=== PATIENT | male | born 1965 | race Caucasian/White ===

== ENCOUNTER → 2018-08-22 10:39 | Outpatient (CLI) | payer OTHER, SELFPAY ==
[2018-08-22 11:17] LABS: Add Manual Diff / Slide Review NO; Appearance Urine UA CLEAR; Bilirubin Urine UA NEGATIVE (NEGATIVE); Color Urine UA YELLOW; Eosinophils Percent Auto 4.3 % (2-4); Glucose Urine UA NEGATIVE (Normal); Hemoglobin 16.2 g/dL (13.5-17.5); Ketones Urine UA NEGATIVE (NEGATIVE); Leukocyte Esterase Urine UA NEGATIVE (NEGATIVE); Mean Corpuscular HGB Conc 33.1 % (30-36); Mean Corpuscular Hemoglobin 30.2 PG (26-34); Mean Corpuscular Volume 91.1 fL (80-100); Monocytes Percent Auto 10.6 % (3-14); Neutrophils Absolute Auto 4400 /uL (3000-5900); Neutrophils Percent Auto 65.1 % (50-75); Nitrite Urine UA NEGATIVE (Negative); Occult Blood Urine UA NEGATIVE (Negative); Platelet Count 315 X10^3/uL (150-400); Protein Urine UA NEGATIVE (Negative); Red Blood Cell Count 5.38 X10^6/uL (4.5-5.9); Red Cell Distribution Width 14.6 % (11.6-14.8); Urobilinogen Urine UA 0.2 E.U./dL (0.2); White Blood Cell Count 6.8 X10^3/uL (4.5-11.0)
[2018-08-22 12:06] LABS: Alanine Aminotransferase 41 IU/L (21-72); Albumin 4.3 g/dL (3.5-5.0); Albumin Globulin Ratio 1.4 (1.0-2.8); Alkaline Phosphatase 81 U/L (38-126); Aspartate Aminotransferase 34 IU/L (17-59); Bilirubin Total 1.1 mg/dL (0.2-1.3); Blood Urea Nitrogen 15 mg/dL (9-20); Calcium 9.1 mg/dL (8.4-10.2); Carbon Dioxide 26 mmol/L (22-32); Chloride 104 mmol/L (98-107); Cholesterol 152 mg/dL (140-199); Estimated Glomerular Filt Rate > 60.0 mL/min (>60); Globulin 3.1 g/dL (1.7-4.1); Glucose 105 mg/dL (70-100); HDL Cholesterol 50 mg/dL (40-60); HEMOLYSIS < 15 (0-50); LDL Cholesterol Calculated 80 mg/dL (<100); Potassium 4.5 mmol/L (3.4-5.1); Sodium 140 mmol/L (137-145); Total Protein 7.4 g/dL (6.3-8.2); Triglycerides 112 mg/dL (35-150)
[2018-08-22 12:40] LABS: Thyroid Stimulating Hormone 1.14 uIU/mL (0.47-4.68)
== END ==
PROVIDERS: Visit Provider Family Medicine
DX: I21.4 Non-ST elevation (NSTEMI) myocardial infarction (principal); Z12.5 Encounter for screening for malignant neoplasm of prostate; Z51.81 Encounter for therapeutic drug level monitoring
CPT/HCPCS: 36415; 80053; 80061; 81003; 84153; 84443; 85025

== ENCOUNTER → 2018-10-08 11:23 | Outpatient (CLI) | payer OTHER, SELFPAY ==
--- NOTE | 2018-10-08 11:46 | DI.RAD.S_ITS ---
PROCEDURE: XR CHEST 2V INDICATIONS: cough with hematemesis TECHNIQUE: 2 views of the chest were acquired. COMPARISON: [facility], , CHEST 1 VIEW, 01/20/2016, 19:16. FINDINGS: Surgical changes and devices: None. Lungs and pleura: No pleural effusions or pneumothorax. Lungs are clear. Mediastinum: Mediastinal contours are normal. Heart size is normal. Bones and chest wall: No suspicious bony abnormalities. Soft tissues appear unremarkable. IMPRESSION: No acute cardiopulmonary process is seen. If it would be helpful for clinical management decision making, please consider a dedicated chest CT with contrast for further evaluation. Dictated by: Andre Matta M.D. on 10/08/2018 at 11:29 Approved by: Andre Matta M.D. on 10/08/2018 at 11:29
[2018-10-08 12:33] LABS: D Dimer < 200 ng/mL (<230)
== END ==
PROVIDERS: Family Medicine; Visit Provider Physician Assistant
DX: R05 Cough (principal); E78.5 Hyperlipidemia, unspecified; F52.21 Male erectile disorder; I10 Essential (primary) hypertension
CPT/HCPCS: 36415; 71046; 84403; 85379

== ENCOUNTER 2018-10-09 20:27 | Emergency (ER) | payer OTHER, SELFPAY ==
[2018-10-09 20:39] VITALS: BP 166/87; PULSE 95; RESP 18; TEMP 36.8; O2SAT 96; BMI 28.8
--- NOTE | 2018-10-09 20:39 | ED.BACK ---
HPI - Back Pain/Injury <NHI Nava - Last Filed: 10/09/18 21:43> General Chief Complaint: Back Pain/Injury Stated Complaint: coughing so hard, hes in pain Time Seen by Provider: 10/09/18 20:36 Source: patient Mode of arrival: ambulatory Limitations: no limitations History of Present Illness HPI Narrative: 53-year-old male with history of coronary artery disease that is a former smoker here for complaint of pain into his right lateral rib cage. He reports he has had a cough over the past several weeks. He was seen in the walk-in clinic yesterday had a negative chest x-ray and a negative D-dimer. He reports that the episode started with flu/cold-like symptoms with cough that was productive and the cough is now dry. He was prescribed Tessalon Perles yesterday. He states that he had a hard cough attack this morning when the pain to his right ribcage started. He states that the pain is only with cough. He denies pain without the cough. He denies any other concerns or complaints at this time. No chest pain Related Data Previous Rx's Medication Instructions Recorded aspirin 81 mg PO QDAY #30 tab 02/28/17 atorvastatin 80 mg tablet 80 mg PO HS #90 tab 04/10/18 fluoxetine 20 mg capsule 20 mg PO QDAY #30 cap 07/17/18 acyclovir 400 mg tablet 400 mg PO 5XD #90 tab 09/10/18 atorvastatin 40 mg tablet 40 mg PO DAILY #90 tab 09/10/18 lisinopril 2.5 mg tablet 2.5 mg PO QDAY #90 tab 09/10/18 metoprolol tartrate 25 mg tablet 25 mg PO BID #180 tab 09/10/18 omeprazole 20 mg capsule,delayed 20 mg PO QDAY #90 cap 09/10/18 release [place] #4 each 09/16/18 testosterone cypionate 200 mg/mL See Label Instructions IM .COMPLEX 09/16/18 intramuscular oil #6 each vardenafil 5 mg tablet 5 mg PO PRN SEX PRN #10 tab 09/17/18 [place] #100 each 09/19/18 benzonatate 100 mg capsule 100 mg PO TID PRN #20 cap 10/08/18 codeine-guaifenesin [Guaifenesin 10 ml PO Q4-6H PRN #120 ml 10/09/18 AC] Allergies Allergy/AdvReac Type Severity Reaction Status Date / Time No Known Drug Allergies Allergy Verified 10/09/18 20:39 Review of Systems <NHI Nava - Last Filed: 10/09/18 21:43> Review of Systems All systems reviewed & are unremarkable except as noted in HPI and below Constitutional Denies chills, Denies fever(s), Denies lethargy and Denies weakness Eyes Denies change in vision, Denies eye discharge, Denies irritation and Denies loss of vision ENT Ears, Nose, Mouth, and Throat: Denies change in voice, Denies neck pain, Denies sore throat and Denies throat swelling Cardiovascular Denies chest pain, Denies irregular heart rhythm, Denies lightheadedness, Denies palpitations and Denies orthopnea Respiratory Reports cough and Denies wheezing Comments: Right ribcage pain Gastrointestinal Gastrointestinal: Denies abdominal pain, Denies change in bowel habits, Denies diarrhea, Denies nausea and Denies vomiting Genitourinary Denies hematuria, Denies flank pain, Denies urinary incontinence and Denies urinary urgency Musculoskeletal Denies neck pain Integumentary/Breasts Denies pruritus, Denies erythema, Denies rash and Denies wounds Neurologic Denies confusion, Denies loss of vision and Denies weakness Psychiatric Denies anxiety, Denies confusion, Denies depression, Denies homicidal ideation and Denies suicidal ideation Endocrine Denies palpitations Hematologic/Lymphatic Denies easy bruising Allergic/Immunologic Denies urticaria, Denies throat swelling and Denies wheezing Exam <NHI Nava - Last Filed: 10/09/18 21:43> Initial Vital Signs Initial Vital Signs: Vital Signs Temperature 98.3 F 10/09/18 20:39 Pulse Rate 95 H 10/09/18 20:39 Respiratory Rate 18 10/09/18 20:39 Blood Pressure 166/87 H 10/09/18 20:39 Pulse Oximetry 96 10/09/18 20:39 Const General: cooperative and well developed Nutritional Appearance: well nourished Orientation: alert, awake, oriented x3 and not confused HENMT Mouth: oral mucosae normal and moist mucous membranes Eyes Eyelids: eyelids normal Conjunctivae: conjunctivae normal Sclera: sclerae normal Pupils: PERRL EOM: EOM intact bilaterally Chest Chest: normal inspection of the chest Resp Effort & Inspection: normal respiratory effort, able to speak in complete sentences, no respiratory distress and no use of accessory muscles Auscultation: clear to auscultation bilaterally, no rales, no rhonchi and no wheezes Cardio Rate: regular rate Rhythm: regular rhythm Heart Sounds: no click, no gallops, no murmurs and no rubs Skin General: no rashes or lesions noted, No jaundice and No petechiae Neuro General: alert, oriented x3, gait normal and no focal motor deficits Speech: speech normal <Kirsten Park DO - Last Filed: 10/10/18 03:00> Initial Vital Signs Initial Vital Signs: Vital Signs Temperature 98.3 F 10/09/18 20:39 Pulse Rate 95 H 10/09/18 20:39 Respiratory Rate 18 10/09/18 20:39 Blood Pressure 166/87 H 10/09/18 20:39 Pulse Oximetry 96 10/09/18 20:39 Course <NHI Nava - Last Filed: 10/09/18 21:43> Orders Ordered: ED Orders 10/09/18 20:46 XR ribs RT min 3V w CXR1V Stat Discontinued Medications Hydrocodone Bitart/Acetaminophen ([place] 5/325) 1 tab PO NOW ONE Stop: 10/09/18 20:48 Last Admin: 10/09/18 21:04 Dose: 1 tab Hydrocodone Bitart/Acetaminophen (Vicodin Prepack) 1 bottle MISC SEEINSTR ONE Stop: 10/09/18 21:39 Last Admin: 10/09/18 21:49 Dose: 1 bottle Vital Signs - 8 hr 10/09/18 20:39 10/09/18 21:59 Temperature 98.3 F Pulse Rate 95 H 66 Respiratory Rate 18 14 Blood Pressure 166/87 H 125/71 Pulse Oximetry 96 100 <DO Kunal Villar Last Filed: 10/10/18 03:00> Orders Ordered: ED Orders 10/09/18 20:46 XR ribs RT min 3V w CXR1V Stat Discontinued Medications Hydrocodone Bitart/Acetaminophen ([place] 5/325) 1 tab PO NOW ONE Stop: 10/09/18 20:48 Last Admin: 10/09/18 21:04 Dose: 1 tab Hydrocodone Bitart/Acetaminophen (Vicodin Prepack) 1 bottle MISC SEEINSTR ONE Stop: 10/09/18 21:39 Last Admin: 10/09/18 21:49 Dose: 1 bottle Vital Signs - 8 hr 10/09/18 20:39 10/09/18 21:59 Temperature 98.3 F Pulse Rate 95 H 66 Respiratory Rate 18 14 Blood Pressure 166/87 H 125/71 Pulse Oximetry 96 100 [facility] - Back Pain/Injury <NHI Nava - Last Filed: 10/09/18 21:43> ECG Data Interpretation: [address] [address] XRay Report Signed Patient: Ervin Tsang MR#: [id number] : 1965 Acct:[id number] Age/Sex: 53 / M Date of Service: 10/09/18 Loc: ED Accession Number: [id number] Procedure: XR ribs RT min 3V w CXR1V Ordering Provider: Ankit Sam PROCEDURE: XR RIBS RT MIN 3V W CXR 1V INDICATIONS: Cough for last several weeks pain to right ribcage today TECHNIQUE: 2 views of the right ribs were acquired, along with a single view chest. COMPARISON: [facility], , XR CHEST 2V, 10/08/2018, 11:42. FINDINGS: Surgical changes and devices: None. Bones and chest wall: No fractures or dislocations. No suspicious bony lesions. Overlying soft tissues appear unremarkable. Lungs and pleura: No pleural effusions or pneumothorax. Lungs appear clear. Mediastinum: Mediastinal contours appear normal. Heart size is normal. IMPRESSION: No acute fracture. No osseous lesion. If clinical suspicion and/or symptoms persist, further assessment with repeat plainfilms, or advanced imaging (e.g., CT or bone scan) may be helpful for further assessment. Dictated by: Jay Pope M.D. on 10/09/2018 at 21:12 Approved by: Jay Pope M.D. on 10/09/2018 at 21:13 [facility] Narrative Medical decision making narrative: X-ray the right ribcage was obtained was negative for any acute findings. Signs and symptoms presents as inner costal muscle strain secondary to cough related to what appears to be bronchitis. He states that the Tessalon Perles is not helping his cough. They did ask for a cough medication with codeine. Informed them that evidence does not support a effectiveness of codeine as a cough suppressant. They understand and desire prescription for cough medication. He is also given a small amount of [place] for breakthrough pain. Use [id number] ibuprofen as needed for discomfort. Plenty of fluids and rest. Follow up with primary care provider. For any worsening symptoms return to the emergency room. Discharge Plan Departure Patient Disposition: Home Clinical Impression: Bronchitis Discharge Date/Time: 10/09/18 22:00 Interventions: ED Discharge Assessment Last Done: 10/09/18 21:59 Instructions: DI for Acute Bronchitis Activity Restrictions/Additional Instructions: X-ray the right ribcage was obtained was negative for any fractures. Signs and symptoms presents as muscle strain into the right ribcage area. Use [id number] ibuprofen as needed for any discomfort. Small amount of [place] is prescribed for breakthrough pain use as directed no driving while on the [place]. Codeine cough syrup is prescribed to see if it helps with her cough use as directed. Do not use codeine and conjunction with [place] for pain. Follow up with primary care provider. Return emergency room for any worsening symptoms. Prescriptions: New codeine-guaifenesin [Guaifenesin AC] 10-100 mg/5 mL liquid 10 ml PO Q4-6H PRN (Reason: cough) Qty: 120 RF: 0 No Action benzonatate [Tessalon Perles] 100 mg capsule 100 mg PO TID PRN (Reason: cough) Qty: 20 RF: 0 aspirin 81 MG tablet,delayed release (DR/EC) 81 mg PO QDAY Qty: 30 RF: 0 atorvastatin 80 mg tablet 80 mg PO HS Qty: 90 RF: 1 fluoxetine 20 mg capsule 20 mg PO QDAY Qty: 30 RF: 0 acyclovir 400 mg tablet 400 mg PO 5XD Qty: 90 RF: 3 atorvastatin 40 mg tablet 40 mg PO DAILY Qty: 90 RF: 1 lisinopril 2.5 mg tablet 2.5 mg PO QDAY Qty: 90 RF: 1 metoprolol tartrate 25 mg tablet 25 mg PO BID Qty: 180 RF: 0 omeprazole 20 mg capsule,delayed release(DR/EC) 20 mg PO QDAY Qty: 90 RF: 1 [place] .Route .MEDSUPPLY Qty: 4 RF: 3 testosterone cypionate [Depo-Testosterone] 200 mg/mL oil See Label Instructions IM .COMPLEX Qty: 6 RF: 1 vardenafil [Levitra] 5 mg tablet 5 mg PO PRN SEX PRN (Reason: sexual activity) Qty: 10 RF: 5 [place] .Route .MEDSUPPLY Qty: 100 RF: 3 Referrals: [facility] [Provider Group] <Kirsten Park DO - Last Filed: 10/10/18 03:00> Cosign ED Attending Cosowenature Attestation: I was immediately available in the department for consultation. Documentation has been reviewed. I agree with assessment and plan.
--- NOTE | 2018-10-09 20:46 | DI.RAD.S_ITS ---
PROCEDURE: XR RIBS RT MIN 3V W CXR 1V INDICATIONS: Cough for last several weeks pain to right ribcage today TECHNIQUE: 2 views of the right ribs were acquired, along with a single view chest. COMPARISON: [facility], , XR CHEST 2V, 10/08/2018, 11:42. FINDINGS: Surgical changes and devices: None. Bones and chest wall: No fractures or dislocations. No suspicious bony lesions. Overlying soft tissues appear unremarkable. Lungs and pleura: No pleural effusions or pneumothorax. Lungs appear clear. Mediastinum: Mediastinal contours appear normal. Heart size is normal. IMPRESSION: No acute fracture. No osseous lesion. If clinical suspicion and/or symptoms persist, further assessment with repeat plainfilms, or advanced imaging (e.g., CT or bone scan) may be helpful for further assessment. Dictated by: Jay Pope M.D. on 10/09/2018 at 21:12 Approved by: Jay Pope M.D. on 10/09/2018 at 21:13
[2018-10-09] MEDS: HYDROCODONE/ACET 5/325 TABLET 1 TAB PO (21:04)
--- NOTE | 2018-10-09 21:11 | ED_ITS ---
HPI - Back Pain/Injury <NHI Nava - Last Filed: 10/09/18 21:43> General Chief Complaint: Back Pain/Injury Stated Complaint: coughing so hard, hes in pain Time Seen by Provider: 10/09/18 20:36 Source: patient Mode of arrival: ambulatory Limitations: no limitations History of Present Illness HPI Narrative: 53-year-old male with history of coronary artery disease that is a former smoker here for complaint of pain into his right lateral rib cage. He reports he has had a cough over the past several weeks. He was seen in the walk -in clinic yesterday had a negative chest x-ray and a negative D-dimer. He reports that the episode started with flu/cold-like symptoms with cough that was productive and the cough is now dry. He was prescribed Tessalon Perles yesterday. He states that he had a hard cough attack this morning when the pain to his right ribcage started. He states that the pain is only with cough. He denies pain without the cough. He denies any other concerns or complaints at this time. No chest pain Related Data Previous Rx's Medication Instructions Recorded aspirin 81 mg PO QDAY #30 tab 02/28/17 atorvastatin 80 mg tablet 80 mg PO HS #90 tab 04/10/18 fluoxetine 20 mg capsule 20 mg PO QDAY #30 cap 07/17/18 acyclovir 400 mg tablet 400 mg PO 5XD #90 tab 09/10/18 atorvastatin 40 mg tablet 40 mg PO DAILY #90 tab 09/10/18 lisinopril 2.5 mg tablet 2.5 mg PO QDAY #90 tab 09/10/18 metoprolol tartrate 25 mg tablet 25 mg PO BID #180 tab 09/10/18 omeprazole 20 mg capsule,delayed 20 mg PO QDAY #90 cap 09/10/18 release [place] #4 each 09/16/18 testosterone cypionate 200 mg/mL See Label Instructions IM .COMPLEX 09/16/18 intramuscular oil #6 each vardenafil 5 mg tablet 5 mg PO PRN SEX PRN #10 tab 09/17/18 [place] #100 each 09/19/18 benzonatate 100 mg capsule 100 mg PO TID PRN #20 cap 10/08/18 codeine-guaifenesin [Guaifenesin 10 ml PO Q4-6H PRN #120 ml 10/09/18 AC] Allergies Allergy/AdvReac Type Severity Reaction Status Date / Time No Known Drug Allergies Allergy Verified 10/09/18 20:39 Review of Systems <NHI Nava - Last Filed: 10/09/18 21:43> Review of Systems All systems reviewed & are unremarkable except as noted in HPI and below Constitutional Denies chills, Denies fever(s), Denies lethargy and Denies weakness Eyes Denies change in vision, Denies eye discharge, Denies irritation and Denies loss of vision ENT Ears, Nose, Mouth, and Throat: Denies change in voice, Denies neck pain, Denies sore throat and Denies throat swelling Cardiovascular Denies chest pain, Denies irregular heart rhythm, Denies lightheadedness, Denies palpitations and Denies orthopnea Respiratory Reports cough and Denies wheezing Comments: Right ribcage pain Gastrointestinal Gastrointestinal: Denies abdominal pain, Denies change in bowel habits, Denies diarrhea, Denies nausea and Denies vomiting Genitourinary Denies hematuria, Denies flank pain, Denies urinary incontinence and Denies urinary urgency Musculoskeletal Denies neck pain Integumentary/Breasts Denies pruritus, Denies erythema, Denies rash and Denies wounds Neurologic Denies confusion, Denies loss of vision and Denies weakness Psychiatric Denies anxiety, Denies confusion, Denies depression, Denies homicidal ideation and Denies suicidal ideation Endocrine Denies palpitations Hematologic/Lymphatic Denies easy bruising Allergic/Immunologic Denies urticaria, Denies throat swelling and Denies wheezing Exam <NHI Nava - Last Filed: 10/09/18 21:43> Initial Vital Signs Initial Vital Signs: Vital Signs Temperature 98.3 F 10/09/18 20:39 Pulse Rate 95 H 10/09/18 20:39 Respiratory Rate 18 10/09/18 20:39 Blood Pressure 166/87 H 10/09/18 20:39 Pulse Oximetry 96 10/09/18 20:39 Const General: cooperative and well developed Nutritional Appearance: well nourished Orientation: alert, awake, oriented x3 and not confused HENMT Mouth: oral mucosae normal and moist mucous membranes Eyes Eyelids: eyelids normal Conjunctivae: conjunctivae normal Sclera: sclerae normal Pupils: PERRL EOM: EOM intact bilaterally Chest Chest: normal inspection of the chest Resp Effort & Inspection: normal respiratory effort, able to speak in complete sentences, no respiratory distress and no use of accessory muscles Auscultation: clear to auscultation bilaterally, no rales, no rhonchi and no wheezes Cardio Rate: regular rate Rhythm: regular rhythm Heart Sounds: no click, no gallops, no murmurs and no rubs Skin General: no rashes or lesions noted, No jaundice and No petechiae Neuro General: alert, oriented x3, gait normal and no focal motor deficits Speech: speech normal <Kirsten Park DO - Last Filed: 10/10/18 03:00> Initial Vital Signs Initial Vital Signs: Vital Signs Temperature 98.3 F 10/09/18 20:39 Pulse Rate 95 H 10/09/18 20:39 Respiratory Rate 18 10/09/18 20:39 Blood Pressure 166/87 H 10/09/18 20:39 Pulse Oximetry 96 10/09/18 20:39 Course <NHI Nava - Last Filed: 10/09/18 21:43> Orders Ordered: ED Orders 10/09/18 20:46 XR ribs RT min 3V w CXR1V Stat Discontinued Medications Hydrocodone Bitart/Acetaminophen ([place] 5/325) 1 tab PO NOW ONE Stop: 10/09/18 20:48 Last Admin: 10/09/18 21:04 Dose: 1 tab Hydrocodone Bitart/Acetaminophen (Vicodin Prepack) 1 bottle MISC SEEINSTR ONE Stop: 10/09/18 21:39 Last Admin: 10/09/18 21:49 Dose: 1 bottle Vital Signs - 8 hr 10/09/18 20:39 10/09/18 21:59 Temperature 98.3 F Pulse Rate 95 H 66 Respiratory Rate 18 14 Blood Pressure 166/87 H 125/71 Pulse Oximetry 96 100 <DO Kunal Villar Last Filed: 10/10/18 03:00> Orders Ordered: ED Orders 10/09/18 20:46 XR ribs RT min 3V w CXR1V Stat Discontinued Medications Hydrocodone Bitart/Acetaminophen ([place] 5/325) 1 tab PO NOW ONE Stop: 10/09/18 20:48 Last Admin: 10/09/18 21:04 Dose: 1 tab Hydrocodone Bitart/Acetaminophen (Vicodin Prepack) 1 bottle MISC SEEINSTR ONE Stop: 10/09/18 21:39 Last Admin: 10/09/18 21:49 Dose: 1 bottle Vital Signs - 8 hr 10/09/18 20:39 10/09/18 21:59 Temperature 98.3 F Pulse Rate 95 H 66 Respiratory Rate 18 14 Blood Pressure 166/87 H 125/71 Pulse Oximetry 96 100 [facility] - Back Pain/Injury <NHI Nava - Last Filed: 10/09/18 21:43> ECG Data Interpretation: [address] [address] XRay Report Signed Patient: Ervin Tsang MR#: [id number] : 1965 Acct:[id number] Age/Sex: 53 / M Date of Service: 10/09/18 Loc: ED Accession Number: [id number] Procedure: XR ribs RT min 3V w CXR1V Ordering Provider: Ankit Sam PROCEDURE: XR RIBS RT MIN 3V W CXR 1V INDICATIONS: Cough for last several weeks pain to right ribcage today TECHNIQUE: 2 views of the right ribs were acquired, along with a single view chest. COMPARISON: [facility], , XR CHEST 2V, 10/08/2018, 11:42. FINDINGS: Surgical changes and devices: None. Bones and chest wall: No fractures or dislocations. No suspicious bony lesions. Overlying soft tissues appear unremarkable. Lungs and pleura: No pleural effusions or pneumothorax. Lungs appear clear. Mediastinum: Mediastinal contours appear normal. Heart size is normal. IMPRESSION: No acute fracture. No osseous lesion. If clinical suspicion and/or symptoms persist, further assessment with repeat plainfilms, or advanced imaging (e.g., CT or bone scan) may be helpful for further assessment. Dictated by: Jay Pope M.D. on 10/09/2018 at 21:12 Approved by: Jay Pope M.D. on 10/09/2018 at 21:13 [facility] Narrative Medical decision making narrative: X-ray the right ribcage was obtained was negative for any acute findings. Signs and symptoms presents as inner costal muscle strain secondary to cough related to what appears to be bronchitis. He states that the Tessalon Perles is not helping his cough. They did ask for a cough medication with codeine. Informed them that evidence does not support a effectiveness of codeine as a cough suppressant. They understand and desire prescription for cough medication. He is also given a small amount of [place] for breakthrough pain. Use [id number] ibuprofen as needed for discomfort. Plenty of fluids and rest. Follow up with primary care provider. For any worsening symptoms return to the emergency room. Discharge Plan Departure Patient Disposition: Home Clinical Impression: Bronchitis Discharge Date/Time: 10/09/18 22:00 Interventions: ED Discharge Assessment Last Done: 10/09/18 21:59 Instructions: DI for Acute Bronchitis Activity Restrictions/Additional Instructions: X-ray the right ribcage was obtained was negative for any fractures. Signs and symptoms presents as muscle strain into the right ribcage area. Use over-the- counter ibuprofen as needed for any discomfort. Small amount of [place] is prescribed for breakthrough pain use as directed no driving while on the [place]. Codeine cough syrup is prescribed to see if it helps with her cough use as directed. Do not use codeine and conjunction with [place] for pain. Follow up with primary care provider. Return emergency room for any worsening symptoms. Prescriptions: New codeine-guaifenesin [Guaifenesin AC] 10-100 mg/5 mL liquid 10 ml PO Q4-6H PRN (Reason: cough) Qty: 120 RF: 0 No Action benzonatate [Tessalon Perles] 100 mg capsule 100 mg PO TID PRN (Reason: cough) Qty: 20 RF: 0 aspirin 81 MG tablet,delayed release (DR/EC) 81 mg PO QDAY Qty: 30 RF: 0 atorvastatin 80 mg tablet 80 mg PO HS Qty: 90 RF: 1 fluoxetine 20 mg capsule 20 mg PO QDAY Qty: 30 RF: 0 acyclovir 400 mg tablet 400 mg PO 5XD Qty: 90 RF: 3 atorvastatin 40 mg tablet 40 mg PO DAILY Qty: 90 RF: 1 lisinopril 2.5 mg tablet 2.5 mg PO QDAY Qty: 90 RF: 1 metoprolol tartrate 25 mg tablet 25 mg PO BID Qty: 180 RF: 0 omeprazole 20 mg capsule,delayed release(DR/EC) 20 mg PO QDAY Qty: 90 RF: 1 [place] .Route .MEDSUPPLY Qty: 4 RF: 3 testosterone cypionate [Depo-Testosterone] 200 mg/mL oil See Label Instructions IM .COMPLEX Qty: 6 RF: 1 vardenafil [Levitra] 5 mg tablet 5 mg PO PRN SEX PRN (Reason: sexual activity) Qty: 10 RF: 5 [place] .Route .MEDSUPPLY Qty: 100 RF: 3 Referrals: [facility] [Provider Group] <Kirsten Park DO - Last Filed: 10/10/18 03:00> Cosign ED Attending Cosowenature Attestation: I was immediately available in the department for consultation. Documentation has been reviewed. I agree with assessment and plan.
[2018-10-09] MEDS: HYDROCODONE/ACET 5/325 PREPACK 1 BOTTLE MISC (21:49)
[2018-10-09 21:59] VITALS: BP 125/71; PULSE 66; RESP 14; O2SAT 100
== END 2018-10-09 22:00 | disposition home or self-care (01) ==
PROVIDERS: Emergency Provider Nurse Practitioner Family
DX: J40 Bronchitis, not specified as acute or chronic (principal)
CPT/HCPCS: 71101; 99282; 99283

== ENCOUNTER → 2019-05-23 08:48 | Outpatient (CLI) | payer OTHER, SELFPAY ==
[2019-05-23 09:27] LABS: Appearance Urine UA CLEAR; Bilirubin Urine UA NEGATIVE (NEGATIVE); Color Urine UA YELLOW; Glucose Urine UA NEGATIVE (Negative); Ketones Urine UA NEGATIVE (NEGATIVE); Leukocyte Esterase Urine UA NEGATIVE (NEGATIVE); Nitrite Urine UA NEGATIVE (Negative); Occult Blood Urine UA TRACE-LYSED (Negative); Protein Urine UA NEGATIVE (Negative); Specific Gravity Urine UA 1.025 (1.000-1.035); Urobilinogen Urine UA 0.2 E.U./dL (0.2)
[2019-05-23 09:32] LABS: Add Manual Diff / Slide Review NO; Basophils Absolute Auto 100 /uL (0-100); Basophils Percent Auto 1.1 % (0-2); Eosinophils Absolute Auto 300 /uL (0-450); Eosinophils Percent Auto 4.3 % (2-4); Lymphocytes Absolute Auto 1400 /uL (1100-4500); Lymphocytes Percent Auto 20.3 % (25-40); Mean Corpuscular Hemoglobin 30.8 PG (26-34); Mean Corpuscular Volume 90.4 fL (80-100); Monocytes Absolute Auto 700 /uL (0-900); Monocytes Percent Auto 10.5 % (3-14); Neutrophils Absolute Auto 4300 /uL (1500-7000); Neutrophils Percent Auto 63.8 % (50-75); Platelet Count 276 X10^3/uL (150-400); Red Blood Cell Count 5.19 X10^6/uL (4.5-5.9); Red Cell Distribution Width 12.8 % (11.6-14.8); White Blood Cell Count 6.7 X10^3/uL (4.5-11.0)
[2019-05-23 09:57] LABS: HEMOLYSIS < 15 (0-50); Sodium 140 mmol/L (137-145)
[2019-05-23 09:58] LABS: Alanine Aminotransferase 37 IU/L (21-72); Albumin 4.4 g/dL (3.5-5.0); Albumin Globulin Ratio 1.3 (1.0-2.8); Alkaline Phosphatase 82 U/L (38-126); Aspartate Aminotransferase 32 IU/L (17-59); Bilirubin Total 0.9 mg/dL (0.2-1.3); Blood Urea Nitrogen 14 mg/dL (9-20); Calcium 9.3 mg/dL (8.4-10.2); Carbon Dioxide 27 mmol/L (22-32); Chloride 103 mmol/L (98-107); Cholesterol 171 mg/dL (140-199); Estimated Glomerular Filt Rate > 60.0 mL/min (>60); Globulin 3.3 g/dL (1.7-4.1); Glucose 113 mg/dL (70-100); HDL Cholesterol 54 mg/dL (40-60); LDL Cholesterol Calculated 92 mg/dL (<100); Potassium 4.9 mmol/L (3.4-5.1); Total Protein 7.7 g/dL (6.3-8.2); Triglycerides 123 mg/dL (35-150)
[2019-05-23 11:07] LABS: Thyroid Stimulating Hormone 1.72 uIU/mL (0.47-4.68)
== END ==
PROVIDERS: Visit Provider Family Medicine
DX: R53.83 Other fatigue (principal); Z13.220 Encounter for screening for lipoid disorders; Z13.29 Encounter for screening for other suspected endocrine disorder; Z51.81 Encounter for therapeutic drug level monitoring
CPT/HCPCS: 36415; 80053; 80061; 81003; 84443; 85025

== ENCOUNTER → 2019-05-26 17:25 | Outpatient (CLI) | payer OTHER, SELFPAY | PROVIDERS: Visit Provider Family Medicine | DX: R79.89 Other specified abnormal findings of blood chemistry (principal) | CPT/HCPCS: 84403 ==

== ENCOUNTER → 2019-11-27 16:06 | Outpatient (CLI) | payer OTHER, SELFPAY ==
[2019-11-27 17:59] LABS: Prostate Specific Antigen Scrn 1.77 ng/mL (0.1-4.0)
[2019-11-27 18:01] LABS: Testosterone 233 ng/dL (71.8-623)
== END ==
PROVIDERS: Referring Provider Nurse Practitioner Family; Visit Provider Nurse Practitioner Family
DX: Z51.81 Encounter for therapeutic drug level monitoring (principal); Z79.890 Hormone replacement therapy
CPT/HCPCS: 36415; 84403; G0103

== ENCOUNTER → 2020-05-24 15:01 | Outpatient (CLI) | payer OTHER, SELFPAY ==
[2020-05-24 16:14] LABS: Hematocrit 46.5 % (41-53); Hemoglobin 15.6 g/dL (13.5-17.5); Mean Corpuscular HGB Conc 33.6 % (30-36); Mean Corpuscular Hemoglobin 31.2 PG (26-34); Mean Corpuscular Volume 92.6 fL (80-100); Platelet Count 276 X10^3/uL (150-400); Red Blood Cell Count 5.02 X10^6/uL (4.5-5.9); Red Cell Distribution Width 12.5 % (11.6-14.8); White Blood Cell Count 6.7 X10^3/uL (4.5-11.0)
[2020-05-24 17:09] LABS: Alanine Aminotransferase 45 IU/L (<50); Albumin 4.2 g/dL (3.5-5.0); Albumin Globulin Ratio 1.6 (1.0-2.8); Alkaline Phosphatase 80 U/L (38-126); Aspartate Aminotransferase 41 IU/L (17-59); BUN Creatinine Ratio 11.8 (6-22); Blood Urea Nitrogen 13 mg/dL (9-20); Calcium 9.5 mg/dL (8.4-10.2); Carbon Dioxide 27 mmol/L (22-32); Chloride 104 mmol/L (98-107); Estimated Glomerular Filt Rate > 60.0 mL/min (>60); Globulin 2.6 g/dL (1.7-4.1); Glucose 93 mg/dL (70-100); HEMOLYSIS < 15 (0-50); Potassium 4.8 mmol/L (3.4-5.1); Sodium 137 mmol/L (137-145); Total Protein 6.8 g/dL (6.3-8.2)
[2020-05-24 17:40] LABS: Testosterone 551 ng/dL (71.8-623)
== END ==
PROVIDERS: Referring Provider Nurse Practitioner Family; Visit Provider Nurse Practitioner Family
DX: Z00.00 Encounter for general adult medical examination without abnormal findings (principal); I25.2 Old myocardial infarction; R79.89 Other specified abnormal findings of blood chemistry
CPT/HCPCS: 36415; 80053; 84403; 85027

== ENCOUNTER → 2022-12-27 10:46 | Outpatient (CLI) | payer OTHER, SELFPAY ==
--- NOTE | 2022-12-27 13:31 | DI.RAD.S_ITS ---
PROCEDURE: XR HAND LT MIN 3V INDICATIONS: PAIN TECHNIQUE: 3 views of the hand(s) acquired. COMPARISON: None. FINDINGS: Bones: No fractures or dislocations. Carpal bones are normally aligned. No suspicious bony lesions. Geqe-km-edehixrk degenerative joint disease at the 1st carpometacarpal joint. Soft tissues: No suspicious soft tissue calcifications. IMPRESSION: [id number] degenerative joint disease. Dictated by: Abiel Mittal M.D. on 12/27/2022 at 17:20 Approved by: Abiel Mittal M.D. on 12/27/2022 at 17:27
--- NOTE | 2022-12-27 13:32 | DI.RAD.S_ITS ---
PROCEDURE: XR SHOULDER LT MIN 2V INDICATIONS: PAIN TECHNIQUE: 3 views of the shoulder were acquired. COMPARISON: None. FINDINGS: Bones: No fractures or dislocations. No suspicious bony lesions. Mild degenerative joint disease. Visualized ribs appear intact. Soft tissues: No suspicious soft tissue calcifications. IMPRESSION: Mild degenerative joint disease. Dictated by: Abiel Mittal M.D. on 12/27/2022 at 17:27 Approved by: Abiel Mittal M.D. on 12/27/2022 at 17:28
[2022-12-27 13:50] LABS: Add Manual Diff / Slide Review NO; Basophils Absolute Auto 0 /uL (0-100); Basophils Percent Auto 0.7 % (0-2); Eosinophils Absolute Auto 100 /uL (0-450); Eosinophils Percent Auto 2.3 % (2-4); Hematocrit 46.4 % (41-53); Hemoglobin 15.7 g/dL (13.5-17.5); Lymphocytes Absolute Auto 1500 /uL (1100-4500); Lymphocytes Percent Auto 24.7 % (25-40); Mean Corpuscular HGB Conc 33.9 % (30-36); Mean Corpuscular Hemoglobin 31.1 PG (26-34); Mean Corpuscular Volume 91.7 fL (80-100); Monocytes Absolute Auto 700 /uL (0-900); Monocytes Percent Auto 12.2 % (3-14); Neutrophils Absolute Auto 3600 /uL (1500-7000); Neutrophils Percent Auto 60.1 % (50-75); Platelet Count 243 X10^3/uL (150-400); Red Blood Cell Count 5.06 X10^6/uL (4.5-5.9)
[2022-12-27 14:02] LABS: Hemoglobin A1C% w Est Avg Glu 5.6 % (4.0-6.0)
[2022-12-27 14:19] LABS: HEMOLYSIS < 15 (0-50)
[2022-12-27 14:24] LABS: Alanine Aminotransferase 36 IU/L (<50); Albumin 3.9 g/dL (3.5-5.0); Albumin Globulin Ratio 1.3 (1.0-2.8); Alkaline Phosphatase 84 U/L (38-126); Aspartate Aminotransferase 34 IU/L (17-59); BUN Creatinine Ratio 17.8 (6-22); Bilirubin Total 1.1 mg/dL (0.2-1.3); Blood Urea Nitrogen 16 mg/dL (9-20); Calcium 8.5 mg/dL (8.4-10.2); Carbon Dioxide 25 mmol/L (22-32); Chloride 104 mmol/L (98-107); Cholesterol 131 mg/dL (140-199); Estimated Glomerular Filt Rate > 60 mL/min (>60); Glucose 96 mg/dL (70-100); HDL Cholesterol 42 mg/dL (40-60); LDL Cholesterol Calculated 71 mg/dL (<100); Potassium 4.5 mmol/L (3.4-5.1); Sodium 137 mmol/L (137-145); Total Protein 6.9 g/dL (6.3-8.2); Triglycerides 91 mg/dL (35-150)
[2022-12-28 09:50] LABS: Prostate Specific Antigen 1.99 ng/mL (0.10-4.00)
[2023-01-07 10:07] LABS: Percent Free Testosterone 3.23 % (1.50-4.20); Testosterone Free 21.41 ng/dL (5.00-21.00)
== END ==
LOC: LAB 10:47 → RAD 10:50
PROVIDERS: PCP Family Medicine; Referring Provider Family Medicine; Visit Provider Family Medicine
DX: M19.012 Primary osteoarthritis, left shoulder (principal); M19.042 Primary osteoarthritis, left hand; M25.512 Pain in left shoulder; M79.642 Pain in left hand; E78.5 Hyperlipidemia, unspecified; I10 Essential (primary) hypertension; I25.2 Old myocardial infarction; R73.03 Prediabetes; R79.89 Other specified abnormal findings of blood chemistry
CPT/HCPCS: 36415; 73030; 73130; 80053; 80061; 83036; 84153; 84402; 84403; 85025

== ENCOUNTER → 2023-09-09 15:18 | Outpatient (CLI) | payer OTHER, SELFPAY ==
[2023-09-09 16:41] LABS: Add Manual Diff / Slide Review NO; Basophils Absolute Auto 100 /uL (0-100); Basophils Percent Auto 0.7 % (0-2); Eosinophils Absolute Auto 300 /uL (0-450); Eosinophils Percent Auto 4.1 % (2-4); Hematocrit 48.3 % (41-53); Hemoglobin 16.6 g/dL (13.5-17.5); Lymphocytes Absolute Auto 1400 /uL (1100-4500); Lymphocytes Percent Auto 17.5 % (25-40); Mean Corpuscular HGB Conc 34.4 % (30-36); Mean Corpuscular Hemoglobin 31.4 PG (26-34); Mean Corpuscular Volume 91.3 fL (80-100); Monocytes Absolute Auto 800 /uL (0-900); Neutrophils Absolute Auto 5400 /uL (1500-7000); Neutrophils Percent Auto 67.7 % (50-75); Platelet Count 258 X10^3/uL (150-400); Red Blood Cell Count 5.29 X10^6/uL (4.5-5.9); Red Cell Distribution Width 12.5 % (11.6-14.8)
[2023-09-09 17:01] LABS: Alanine Aminotransferase 53 IU/L (<50); Albumin 4.3 g/dL (3.5-5.0); Albumin Globulin Ratio 1.4 (1.0-2.8); Alkaline Phosphatase 75 U/L (38-126); Aspartate Aminotransferase 42 IU/L (17-59); BUN Creatinine Ratio 19.5 (6-22); Bilirubin Total 1.3 mg/dL (0.2-1.3); Blood Urea Nitrogen 17 mg/dL (9-20); Calcium 9.5 mg/dL (8.4-10.2); Carbon Dioxide 27 mmol/L (22-32); Chloride 102 mmol/L (98-107); Cholesterol 170 mg/dL (140-199); Estimated Glomerular Filt Rate > 60 mL/min (>60); Globulin 3.1 g/dL (1.7-4.1); Glucose 103 mg/dL (80-110); HDL Cholesterol 44 mg/dL (40-60); HEMOLYSIS < 15 (0-50); LDL Cholesterol Calculated 97 mg/dL (<100); Potassium 4.3 mmol/L (3.4-5.1); Sodium 137 mmol/L (137-145); Total Protein 7.4 g/dL (6.3-8.2); Triglycerides 146 mg/dL (35-150)
[2023-09-09 17:29] LABS: Prostate Specific Antigen 2.31 ng/mL (0.10-4.00)
[2023-09-16 09:43] LABS: Percent Free Testosterone 2.28 % (1.50-4.20); Testosterone Free 6.17 ng/dL (5.00-21.00); Testosterone Total 270.8 ng/dL (264.0-916.0)
== END ==
PROVIDERS: PCP Family Medicine; Referring Provider Family Medicine; Visit Provider Family Medicine
DX: I10 Essential (primary) hypertension (principal); E78.5 Hyperlipidemia, unspecified; R79.89 Other specified abnormal findings of blood chemistry; K21.9 Gastro-esophageal reflux disease without esophagitis; Z77.011 Contact with and (suspected) exposure to lead
CPT/HCPCS: 36415; 80053; 80061; 83655; 84153; 84402; 84403; 85025

== ENCOUNTER → 2024-08-20 14:37 | Outpatient (CLI) | payer OTHER, SELFPAY ==
[2024-08-20 15:56] LABS: Add Manual Diff / Slide Review NO; Basophils Absolute Auto 100 /uL (0-100); Basophils Percent Auto 0.8 % (0-2); Eosinophils Absolute Auto 300 /uL (0-450); Eosinophils Percent Auto 3.5 % (2-4); Hemoglobin 16.1 g/dL (13.5-17.5); Lymphocytes Absolute Auto 1600 /uL (1100-4500); Lymphocytes Percent Auto 20.1 % (25-40); Mean Corpuscular HGB Conc 33.5 % (30-36); Mean Corpuscular Volume 92.3 fL (80-100); Monocytes Absolute Auto 600 /uL (0-900); Monocytes Percent Auto 7.9 % (3-14); Neutrophils Absolute Auto 5400 /uL (1500-7000); Neutrophils Percent Auto 67.7 % (50-75); Platelet Count 266 X10^3/uL (150-400); Red Cell Distribution Width 12.9 % (11.6-14.8)
[2024-08-20 16:30] LABS: Alanine Aminotransferase 36 IU/L (<50); Albumin 3.8 g/dL (3.5-5.0); Albumin Globulin Ratio 1.5 (1.0-2.8); Alkaline Phosphatase 95 U/L (38-126); Aspartate Aminotransferase 29 IU/L (17-59); BUN Creatinine Ratio 15.5 (6-22); Blood Urea Nitrogen 15 mg/dL (9-20); Calcium 8.8 mg/dL (8.4-10.2); Carbon Dioxide 23 mmol/L (22-32); Chloride 105 mmol/L (98-107); Cholesterol 159 mg/dL (140-199); Estimated Glomerular Filt Rate > 60 mL/min (>60); Globulin 2.5 g/dL (1.7-4.1); Glucose 147 mg/dL (80-110); HDL Cholesterol 47 mg/dL (40-60); HEMOLYSIS < 15 (0-50); LDL Cholesterol Calculated 75 mg/dL (<100); Potassium 4.1 mmol/L (3.4-5.1); Sodium 136 mmol/L (137-145); Total Protein 6.3 g/dL (6.3-8.2); Triglycerides 186 mg/dL (35-150)
[2024-08-20 17:01] LABS: Prostate Specific Antigen 2.66 ng/mL (0.10-4.00)
[2024-08-30 11:40] LABS: Percent Free Testosterone 5.08 % (1.50-4.20); Testosterone Free 21.77 ng/dL (5.00-21.00); Testosterone Total 428.6 ng/dL (264.0-916.0)
== END ==
PROVIDERS: PCP Family Medicine; Referring Provider Family Medicine; Visit Provider Family Medicine
DX: Z00.00 Encounter for general adult medical examination without abnormal findings (principal); I10 Essential (primary) hypertension; E78.5 Hyperlipidemia, unspecified; R79.89 Other specified abnormal findings of blood chemistry
CPT/HCPCS: 80053; 80061; 84153; 84402; 84403; 85025

== ENCOUNTER → 2024-10-09 13:30 | Outpatient (CLI) | payer OTHER, SELFPAY ==
[2024-10-09 14:38] LABS: Hemoglobin A1C% w Est Avg Glu 5.4 % (4.0-6.0)
== END ==
PROVIDERS: PCP Family Medicine; Referring Provider Physician Assistant; Visit Provider Physician Assistant
DX: E78.5 Hyperlipidemia, unspecified (principal); E66.9 Obesity, unspecified; Z83.3 Family history of diabetes mellitus; Z82.49 Family history of ischemic heart disease and other diseases of the circulatory system
CPT/HCPCS: 36415; 83036; 84443

== ENCOUNTER → 2025-07-13 14:43 | Outpatient (CLI) | payer OTHER, SELFPAY ==
[2025-07-13 15:25] LABS: Add Manual Diff / Slide Review NO; Hematocrit 46.4 % (41-53); Hemoglobin 15.9 g/dL (13.5-17.5); Lymphocytes Absolute Auto 1400 /uL (1100-4500); Mean Corpuscular HGB Conc 34.4 % (30-36); Mean Corpuscular Hemoglobin 31.2 PG (26-34); Mean Corpuscular Volume 90.7 fL (80-100); Platelet Count 248 X10^3/uL (150-400)
[2025-07-13 17:16] LABS: HEMOLYSIS < 15 (0-50); Iron 67 ug/dL (49-181)
[2025-07-13 17:18] LABS: Alanine Aminotransferase 36 IU/L (<50); Albumin 4.1 g/dL (3.5-5.0); Albumin Globulin Ratio 1.5 (1.0-2.8); Alkaline Phosphatase 74 U/L (38-126); Blood Urea Nitrogen 14 mg/dL (9-20); Calcium 8.9 mg/dL (8.4-10.2); Carbon Dioxide 24 mmol/L (22-32); Chloride 103 mmol/L (98-107); Cholesterol 132 mg/dL (140-199); Estimated Glomerular Filt Rate > 60 mL/min (>60); Globulin 2.7 g/dL (1.7-4.1); Glucose 94 mg/dL (70-99); HDL Cholesterol 54 mg/dL (40-60); HEMOLYSIS < 15 (0-50); Potassium 4.5 mmol/L (3.4-5.1); Sodium 137 mmol/L (137-145); Total Protein 6.8 g/dL (6.3-8.2); Triglycerides 109 mg/dL (35-150)
[2025-07-13 17:28] LABS: NT-proBNP (BNP-Adult 18+) < 20 pg/mL (<125)
[2025-07-13 17:33] LABS: Percent Iron Saturation 20 % (20-50); Total Iron Binding Capacity 342 ug/dL (261-462); Transferrin 275 mg/dL (206-381)
[2025-07-13 17:49] LABS: Prostate Specific Antigen 2.45 ng/mL (0.10-4.00)
[2025-07-13 17:54] LABS: TSH w/ Reflex to FT4 1.52 uIU/mL (0.47-4.68)
[2025-07-13 19:03] LABS: Hemoglobin A1C% w Est Avg Glu 5.7 % (4.0-6.0)
== END ==
PROVIDERS: PCP Family Medicine; Referring Provider Family Medicine; Visit Provider Family Medicine
DX: R73.03 Prediabetes (principal); I10 Essential (primary) hypertension; E78.2 Mixed hyperlipidemia; R79.89 Other specified abnormal findings of blood chemistry
CPT/HCPCS: 36415; 80053; 80061; 83036; 83540; 83550; 83880; 84153; 84443; 85025